=== PATIENT | female | born 1950 | race Caucasian/White ===

== ENCOUNTER → 2024-08-01 | Outpatient (CLI) | payer MEDICARE ==
[~2024-08-01] MED LIST: CEPHALEXIN250 MG PO; NIFEDIPINE ER30 M3 PO
== END ==
LOC: RAD 08:33
DX: N26.1 Atrophy of kidney (terminal) (principal); R74.01 Elevation of levels of liver transaminase levels

== ENCOUNTER → 2024-08-29 | Outpatient (CLI) | payer MEDICARE | LOC: RAD 08:48 | DX: M41.85 Other forms of scoliosis, thoracolumbar region (principal); R74.8 Abnormal levels of other serum enzymes ==

== ENCOUNTER → 2024-08-30 | Outpatient (CLI) | payer MEDICARE | LOC: LAB 09:03 | DX: R74.8 Abnormal levels of other serum enzymes (principal); R79.89 Other specified abnormal findings of blood chemistry ==

== ENCOUNTER → 2024-09-06 | Outpatient (CLI) | payer MEDICARE ==
[2024-09-06 12:43] LABS: ALBUMIN 3.9 g/dL (3.4-4.8)
[2024-09-06 12:47] LABS: TOTAL BILIRUBIN 0.5 mg/dL (0.2-1.2)
[2024-09-06 12:51] LABS: DIRECT BILIRUBIN 0.2 mg/dL (0.0-0.5)
== END ==
LOC: LAB 12:18
PROVIDERS: Student in an Organized Health Care Education/Training Program
DX: R74.8 Abnormal levels of other serum enzymes (principal)

== ENCOUNTER → 2024-10-16 | Outpatient (CLI) | payer MEDICARE | LOC: RAD 14:00 | DX: M05.79 Rheumatoid arthritis with rheumatoid factor of multiple sites without organ or systems involvement (principal) ==

== ENCOUNTER → 2024-10-16 | Outpatient (CLI) | payer MEDICARE ==
[2024-10-16 14:18] LABS: ALBUMIN 3.8 g/dL (3.4-4.8)
[2024-10-16 14:21] LABS: TOTAL PROTEIN 6.9 g/dL (6.2-8.1)
[2024-10-16 14:23] LABS: TOTAL BILIRUBIN 0.3 mg/dL (0.2-1.2)
[2024-10-16 14:27] LABS: DIRECT BILIRUBIN 0.2 mg/dL (0.0-0.5)
== END ==
LOC: LAB 13:50
PROVIDERS: Student in an Organized Health Care Education/Training Program
DX: R74.8 Abnormal levels of other serum enzymes (principal); R79.89 Other specified abnormal findings of blood chemistry

== ENCOUNTER → 2024-12-20 | Outpatient (CLI) | payer MEDICARE ==
[~2024-12-20] MED LIST changes: +DOXYCYCLINE HY100 M5 PO
== END ==
LOC: RAD 10:58 → MAMMO 11:00
DX: Z13.820 Encounter for screening for osteoporosis (principal); R74.01 Elevation of levels of liver transaminase levels; Z78.0 Asymptomatic menopausal state